=== PATIENT | male | born 1945 | race Caucasian/White ===

== ENCOUNTER 2017-07-24 10:27 | Inpatient (IN) | payer OTHER, MEDICARE ==
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
[2017-07-24 11:07] LABS: EOS % 1.8 % (0-4.5); HEMATOCRIT 42.3 % (35.4-49); LYMPH % 22.2 % (8-40); MEAN PLT VOLUME 7.6 fl (7.5-11.1); MONO % 8.2 % (3.8-10.2); NEUT % 66.8 % (42.8-82.8); PLATELET COUNT 228 K/MM3 (134-434); RBC 4.98 M/mm3 (4.00-5.60); RDW 14.3 % (11.9-15.9); WHITE BLOOD COUNT 8.3 K/mm3 (4.0-10.0)
[2017-07-24 11:27] LABS: ALBUMIN 3.6 g/dl (3.4-5.0); ALK PHOS 94 U/L (45-117); ANION GAP 7 (8-16); BILIRUBIN,TOTAL 0.6 mg/dL (0.2-1.0); BLOOD UREA NITROGEN 26 mg/dL (7-18); CALCIUM 8.4 mg/dL (8.5-10.1); CHLORIDE 107 mmol/L (98-107); CO2 26 mmol/L (21-32); GLUCOSE,RANDOM 109 mg/dL (74-106); POTASSIUM 3.8 mmol/L (3.5-5.1); SGOT/AST 19 U/L (15-37); SGPT/ALT 31 U/L (12-78); SODIUM 140 mmol/L (136-145)
[2017-07-24 11:30] LABS: INR 1.05 (0.82-1.09); PROTHROMBIN TIME (PATIENT) 11.9 SEC (9.98-11.88)
[2017-07-24] MEDS ORDERED: ACETAMINOPHEN 500 MG TABLET (FP) PO ONE (11:59)
[2017-07-24] MEDS ORDERED: ACETAMINOPHEN 500 MG TABLET (FP) ONE (12:03)
[2017-07-24] MEDS ORDERED: METOCLOPRAMIDE HCL INJECTION 10 MG/2 ML VIAL IVPUSH ONE ×2 (12:27→12:28)
[2017-07-24] MEDS ORDERED: morphine CARPU-JECT 4 MG/1 ML DISP.SYRIN IVPUSH ONE (12:30)
[2017-07-24] MEDS ORDERED: MORPHINE SULFATE 10 MG/1 ML *VIAL ONE (12:31)
[2017-07-24] MEDS ORDERED: METOCLOPRAMIDE HCL INJECTION 10 MG/2 ML VIAL ONE (12:31)
[2017-07-24 12:50] LABS: URINE APPEARANCE CLEAR; URINE BILIRUBIN NEGATIVE (NEGATIVE); URINE BLOOD NEGATIVE (NEGATIVE); URINE COLOR COLORLESS; URINE GLUCOSE (UA) NEGATIVE (NEGATIVE); URINE KETONE NEGATIVE (NEGATIVE); URINE LEUK ESTERASE NEGATIVE (NEGATIVE); URINE NITRITE NEGATIVE (NEGATIVE); URINE PROTEIN NEGATIVE (NEGATIVE); URINE UROBILINOGEN NEGATIVE mg/dL (0.2-1.0)
[2017-07-24] MEDS ORDERED: METOPROLOL TARTRATE 50 MG TABLET (FP) PO ONE (13:17)
[2017-07-24] MEDS ORDERED: METOPROLOL TARTRATE 50 MG TABLET (FP) ONE (13:29)
[2017-07-24 15:02] LABS: CHOLESTEROL 179 mg/dL (50-200); HDL CHOLESTEROL 50 mg/dL (40-60); LDL CHOLESTEROL (ONLY SJRH) 116 mg/dL (5-100); MAGNESIUM 2.2 mg/dL (1.8-2.4); TRIGLYCERIDES 174 mg/dL (35-160)
[2017-07-24 15:07] LABS: CHOLESTEROL 178 mg/dL (50-200); HDL CHOLESTEROL 54 mg/dL (40-60); LDL CHOLESTEROL (ONLY SJRH) 114 mg/dL (5-100); MAGNESIUM 2.1 mg/dL (1.8-2.4); TRIGLYCERIDES 113 mg/dL (35-160)
--- NOTE | 2017-07-24 16:06 | EKG ---
Test Reason : Blood Pressure : / mmHG Vent. Rate : 065 BPM Atrial Rate : 065 BPM P-R Int : 158 ms QRS Dur : 108 ms QT Int : 426 ms P-R-T Axes : 041 269 021 degrees QTc Int : 443 ms SINUS RHYTHM WITH PREMATURE ATRIAL COMPLEXES RIGHT BUNDLE BRANCH BLOCK ABNORMAL ECG NO PREVIOUS ECGS AVAILABLE Confirmed by CHAITANYA MERRILL MD ([id number]) on 07/24/2017 4:05:37 PM Referred By: Confirmed By:CHAITANYA MERRILL MD
[2017-07-24 17:00] VITALS: BMI 29.9
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
[2017-07-24] MEDS: MELATONIN 5 MG TABLETS PO SCH (21:50)
[2017-07-24] MEDS: ATORVASTATIN CA 10 MG TABLET (FP) PO SCH (21:50)
[2017-07-25] MEDS ORDERED: ACETAMINOPHEN 325 MG TABLET (FP) PO PRN (01:52)
[2017-07-25 06:20] LABS: BASO % 0.5 % (0-2.0); HEMOGLOBIN 12.6 GM/dL (11.7-16.9); MCH 29.1 pg (25.7-33.7); MEAN CELL VOLUME 85.5 fl (80-96); MEAN PLT VOLUME 8.3 fl (7.5-11.1); NEUT % 54.5 % (42.8-82.8); PLATELET COUNT 223 K/MM3 (134-434); RBC 4.33 M/mm3 (4.00-5.60); RDW 14.4 % (11.9-15.9); WHITE BLOOD COUNT 8.1 K/mm3 (4.0-10.0)
[2017-07-25 06:48] LABS: ANION GAP 6 (8-16); BLOOD UREA NITROGEN 23 mg/dL (7-18); CALCIUM 7.8 mg/dL (8.5-10.1); CHLORIDE 111 mmol/L (98-107); CO2 27 mmol/L (21-32); CREATININE 0.9 mg/dL (0.7-1.3); GLUCOSE,RANDOM 98 mg/dL (74-106); POTASSIUM 3.9 mmol/L (3.5-5.1); SODIUM 144 mmol/L (136-145)
--- NOTE | 2017-07-25 08:43 | EKG ---
Test Reason : Blood Pressure : / mmHG Vent. Rate : 069 BPM Atrial Rate : 069 BPM P-R Int : 140 ms QRS Dur : 092 ms QT Int : 418 ms P-R-T Axes : 027 -72 -11 degrees QTc Int : 447 ms POOR DATA QUALITY, INTERPRETATION MAY BE ADVERSELY AFFECTED NORMAL SINUS RHYTHM LEFT AXIS DEVIATION INCOMPLETE RIGHT BUNDLE BRANCH BLOCK ABNORMAL ECG WHEN COMPARED WITH ECG OF 24-JUL-2017 10:36, PREMATURE ATRIAL COMPLEXES ARE NO LONGER PRESENT INVERTED T WAVES HAVE REPLACED NONSPECIFIC T WAVE ABNORMALITY IN INFERIOR LEADS Confirmed by GARFIELD BEAN, CHAITANYA ([id number]) on 07/25/2017 8:43:14 AM Referred By: Confirmed By:CHAITANYA MERRILL MD
[2017-07-25] MEDS: PANTOPRAZOLE 40 MG TABLET (FP) PO SCH (09:10)
[2017-07-25] MEDS: ASPIRIN 81 MG CHEWABLE TABLETS PO SCH (09:10)
[2017-07-25] MEDS: amLODIPine BESYLATE 5 MG TABLET (FP) PO SCH (09:10)
[2017-07-25] MEDS: DULoxetine HCL 30 MG CAPSULE.DR (FP) PO SCH (09:10)
[2017-07-25] MEDS: VALSARTAN 160 MG TABLET (UD) PO SCH (09:10)
[2017-07-25] MEDS: LORazepam 1 MG TABLET PO SCH (09:10)
[2017-07-25] MEDS ORDERED: metoPROLOL SUCCINATE 25 MG TAB.SR.24H (FP) PO SCH (10:00)
[2017-07-25] MEDS ORDERED: CHOLECALCIFEROL (VITAMIN D3) 1,000 UNIT TABLET (FP) PO SCH (10:00)
[2017-07-25] MEDS ORDERED: PATIENT'S OWN MEDICATION (NON-FORMULARY) (Amlodipine Bes/Olmesartan Med [Amlodipine-Olmesa PO SCH (10:00)
--- NOTE | 2017-07-25 11:36 | PN ---
Progress Note, Physician Chief Complaint: Still C/O Dizziness and blurring of vision, episode of tachycardia in am HR reported 150s resolved - Current Medication List Current Medications: Active Medications Acetaminophen (Tylenol -) 650 mg PO Q4H PRN PRN Reason: FEVER Last Admin: 07/25/17 02:04 Dose: 650 mg Amlodipine Besylate (Norvasc -) 5 mg PO DAILY [facility] Last Admin: 07/25/17 09:10 Dose: 5 mg Aspirin (Asa -) 81 mg PO DAILY [facility] Last Admin: 07/25/17 09:10 Dose: 81 mg Atorvastatin Calcium (Lipitor -) 10 mg PO HS [facility] Last Admin: 07/24/17 21:50 Dose: 10 mg Cholecalciferol (Vitamin D3 -) 5,000 unit PO Q2D@1000 [facility] Last Admin: 07/25/17 09:10 Dose: 5,000 unit Duloxetine HCl (Cymbalta -) 60 mg PO DAILY [facility] Last Admin: 07/25/17 09:10 Dose: 60 mg Lorazepam (Ativan -) 1 mg PO DAILY [facility] Last Admin: 07/25/17 09:10 Dose: 1 mg Melatonin (Melatonin) 5 mg PO HS [facility] Last Admin: 07/24/17 21:50 Dose: 5 mg Metoprolol Succinate (Toprol Xl -) 25 mg PO DAILY [facility] Last Admin: 07/25/17 09:10 Dose: 25 mg Pantoprazole Sodium (Protonix -) 40 mg PO DAILY [facility] Last Admin: 07/25/17 09:10 Dose: 40 mg Valsartan (Diovan -) 160 mg PO DAILY [facility] Last Admin: 07/25/17 09:10 Dose: 160 mg - Objective Vital Signs: Vital Signs Temperature 98.1 F 07/25/17 07:54 Pulse Rate 69 07/25/17 07:54 Respiratory Rate 18 07/25/17 08:00 Blood Pressure 148/87 07/25/17 07:54 O2 Sat by Pulse Oximetry (%) 98 07/25/17 08:00 Elderly male not in distress, looks anxious c/o blurring of vision HEENT; Mm moist, no anemia, PERRLA EOMI NECK; No JVd No Bruit CHEST; CTA B/L CVS: S1S2 R SM in [place] ABD: No distention, non tender Bs + EXT: No edema feet, no calf tenderness, Pulses + BIOMETRICS HEAD; AOX3 non focal Labs: CBC, BMP 07/25/17 05:00 07/25/17 05:00 INR, PTT INR 1.05 (0.82-1.09) 07/24/17 11:02 Problem List - Problems (1) Syncope and collapse Assessment/Plan: Present with transient TLOC in the setting of palpitation, most likely secondary to arrythmogenic etiology, needs further cardiac w/u, telemonitoring, ECHO, serial, CE, cont ASA, Lipid panel and TSH. Code(s): R55 - SYNCOPE AND COLLAPSE (2) Narrow complex tachycardia Assessment/Plan: Witnessed narrow complex tachycardia with HR 150s no P wave, most likely SVT , cardiac monitoring and possible EP study. cont B Blockers Code(s): I47.1 - SUPRAVENTRICULAR TACHYCARDIA (3) HTN (hypertension) Assessment/Plan: Well controlled cont current management Code(s): I10 - ESSENTIAL (PRIMARY) HYPERTENSION (4) Dyslipidemia Assessment/Plan: Cont Statin F/u Lipid panel Code(s): E78.5 - HYPERLIPIDEMIA, UNSPECIFIED (5) Mitral valve disease Assessment/Plan: Under close observation last ECHO and stress test was few months ago will F/U ECHO Code(s): I05.9 - RHEUMATIC MITRAL VALVE DISEASE, UNSPECIFIED
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
[2017-07-25] MEDS: MELATONIN 5 MG TABLETS PO SCH (21:55)
[2017-07-25] MEDS: ATORVASTATIN CA 10 MG TABLET (FP) PO SCH (21:55)
[2017-07-26] MEDS ORDERED: metoPROLOL SUCCINATE 25 MG TAB.SR.24H (FP) PO ONE ×2 (06:50→09:30)
[2017-07-26 07:13] LABS: BASO % 0.4 % (0-2.0); EOS % 3.8 % (0-4.5); HEMATOCRIT 39.1 % (35.4-49); LYMPH % 31.2 % (8-40); MCH 28.2 pg (25.7-33.7); MCHC 33.2 g/dl (32.0-35.9); MEAN CELL VOLUME 85.1 fl (80-96); MEAN PLT VOLUME 8.3 fl (7.5-11.1); MONO % 9.9 % (3.8-10.2); NEUT % 54.7 % (42.8-82.8); PLATELET COUNT 203 K/MM3 (134-434); RDW 14.1 % (11.9-15.9); WHITE BLOOD COUNT 7.2 K/mm3 (4.0-10.0)
[2017-07-26 07:31] LABS: CHLORIDE 110 mmol/L (98-107); SODIUM 142 mmol/L (136-145)
[2017-07-26 07:35] LABS: ANION GAP 7 (8-16); BLOOD UREA NITROGEN 22 mg/dL (7-18); CALCIUM 7.8 mg/dL (8.5-10.1); CO2 25 mmol/L (21-32); CREATININE 0.8 mg/dL (0.7-1.3); GLUCOSE,RANDOM 102 mg/dL (74-106)
[2017-07-26] MEDS: DULoxetine HCL 30 MG CAPSULE.DR (FP) PO SCH (09:23)
[2017-07-26] MEDS: PANTOPRAZOLE 40 MG TABLET (FP) PO SCH (09:23)
[2017-07-26] MEDS: amLODIPine BESYLATE 5 MG TABLET (FP) PO SCH (09:23)
[2017-07-26] MEDS: ASPIRIN 81 MG CHEWABLE TABLETS PO SCH (09:24)
[2017-07-26] MEDS: LORazepam 1 MG TABLET PO SCH (09:24)
[2017-07-26] MEDS: VALSARTAN 160 MG TABLET (UD) PO SCH (09:24)
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
[2017-07-26] MEDS ORDERED: dilTIAZem HCL 50 MG/10 ML - 10 ML VIAL IVPUSH ONE (13:45)
[2017-07-26 18:45] VITALS: BP 125/65; PULSE 66; TEMP 98.4
== END 2017-07-26 18:59 | disposition short-term general hospital (02) | DRG 310 ==
LOC: JER 10:27 → JERBED 12:46 → J4W 16:08
PROVIDERS: ADMIT Internal Medicine; ATTEND Internal Medicine
DX: I47.1 Supraventricular tachycardia (principal); R55 Syncope and collapse; I45.2 Bifascicular block; I10 Essential (primary) hypertension; E78.5 Hyperlipidemia, unspecified; E03.9 Hypothyroidism, unspecified; F41.8 Other specified anxiety disorders; G44.89 Other headache syndrome; E06.3 Autoimmune thyroiditis
CPT/HCPCS: 36415; 70450-TC; 71045-TC; 71275-TC; 80048; 80053; 80061; 81003; 82550; 83721; 83735; 84443; 84484; 85025; 85610; 93005; 93010; 93306-TC; 93880-TC; 99284-25

== ENCOUNTER 2023-10-10 18:20 | Emergency (ER) | payer OTHER, MEDICARE ==
[2023-10-10 18:26] VITALS: BMI 32.3
[2023-10-10] MEDS ORDERED: ACETAMINOPHEN INJECTION 100 ML IVPB ONE (19:17)
[2023-10-10] MEDS ORDERED: LIDOCAINE 4% PATCH TP ONE (19:17)
[2023-10-10] MEDS: ACETAMINOPHEN 1000 MG/100 ML BAG IVPB ONE (19:43)
[2023-10-10] MEDS: LIDOCAINE 4% PATCH TP ONE (19:43)
[2023-10-10 19:50] LABS: BASO % 0.8 % (0-2.0); EOS % 1.5 % (0-4.5); HEMATOCRIT 42.6 % (35.4-49); HEMOGLOBIN 14.4 GM/dL (11.7-16.9); LYMPH % 32.9 % (8-40); MCH 28.3 pg (25.7-33.7); MCHC 33.9 g/dl (32.0-35.9); MEAN CELL VOLUME 83.6 fl (80-96); MEAN PLT VOLUME 7.9 fl (7.5-11.1); MONO % 10.9 % (3.8-10.2); NEUT % 53.9 % (42.8-82.8); PLATELET COUNT 254 10^3/uL (134-434); RBC 5.09 M/mm3 (4.00-5.60); RDW 14.7 % (11.9-15.9); WHITE BLOOD COUNT 8.2 K/mm3 (4.0-10.0)
[2023-10-10 19:51] LABS: PH,URINE 6.5 (5.0-8.0); URINE APPEARANCE CLEAR; URINE BILIRUBIN NEGATIVE (NEGATIVE); URINE COLOR YELLOW; URINE GLUCOSE (UA) NEGATIVE (NEGATIVE); URINE KETONE NEGATIVE (NEGATIVE); URINE LEUK ESTERASE NEGATIVE (NEGATIVE); URINE NITRITE NEGATIVE (NEGATIVE); URINE PROTEIN NEGATIVE (NEGATIVE); URINE UROBILINOGEN 0.2 mg/dL (0.2-1.0)
[2023-10-10 19:57] LABS: INR 0.99 (0.83-1.09); PROTHROMBIN TIME (PATIENT) 11.2 SEC (9.7-13.0)
[2023-10-10 19:59] LABS: ACTIVATED PTT 26.4 SECONDS (25.2-36.5)
[2023-10-10 20:05] LABS: POTASSIUM 3.4 mmol/L (3.5-5.1)
[2023-10-10 20:08] LABS: ALBUMIN 3.6 g/dl (3.4-5.0); BLOOD UREA NITROGEN 21.2 mg/dL (7-18); CALCIUM 8.7 mg/dL (8.5-10.1)
[2023-10-10 20:11] LABS: CREATININE 1.2 mg/dL (0.55-1.3)
[2023-10-10 20:13] LABS: BILIRUBIN,TOTAL 0.4 mg/dL (0.2-1); TOT PROT 7.1 g/dl (6.4-8.2)
[2023-10-10] MEDS ORDERED: POTASSIUM CHLORIDE ORAL LIQUID 20 MEQ/15 ML ONE (20:45)
[2023-10-10] MEDS: POTASSIUM CHLORIDE ORAL LIQUID 20 MEQ/15 ML PO ONE (21:14)
[2023-10-10] MEDS ORDERED: KETOROLAC TROMETHAMINE 15 MG/ML VIAL ONE (21:32)
[2023-10-10] MEDS: KETOROLAC TROMETHAMINE 15 MG/ML VIAL IVPUSH ONE (21:36)
[2023-10-10 23:54] VITALS: BP 137/78; PULSE 62; RESP 15; TEMP 98.2
[2023-10-11] MEDS ORDERED: LIDOCAINE PATCH REMOVAL MC SCH (07:00)
== END 2023-10-10 23:55 | disposition home or self-care (01) ==
LOC: JER 18:20
PROC: 3E030NZ Introduction of Analgesics, Hypnotics, Sedatives into Peripheral Vein, Open Approach (ICD-10-PCS; principal; 2023-10-10)
PROC: 3E0303Z Introduction of Anti-inflammatory into Peripheral Vein, Open Approach (ICD-10-PCS; 2023-10-10)
DX: N50.812 Left testicular pain (principal); M79.662 Pain in left lower leg; M79.89 Other specified soft tissue disorders; M54.50 Low back pain, unspecified
CPT/HCPCS: 36415; 73590-TC-LT-FY; 76870-TC; 80053; 81003; 83605; 85025; 85610; 85730; 87086; 93971-TC; 99285-25; J0131